=== PATIENT | male | born 1960 | race Caucasian/White ===

== ENCOUNTER 2022-03-27 08:25 | Emergency (ER) | payer OTHER, SELFPAY ==
[2022-03-27 08:26] VITALS: BP 158/92; PULSE 54; RESP 16; TEMP 36.9; O2SAT 95; BMI 33.8
--- NOTE | 2022-03-27 08:44 | RAD_ITS ---
STUDY: X-RAY - LEFT ELBOW REASON FOR EXAM: Male, 62 years old. Elbow pain following a fall. TECHNIQUE: 3 view(s) of the elbow. COMPARISON: None. FINDINGS: Normal visualized humerus, radius and ulna. Normal radiocapitellar and ulnotrochlear articulations. The soft tissue structures are unremarkable. RAD/Elbow min 3 Views IMPRESSION: Normal x-ray examination of the elbow. Electronically Signed: Yousif Castro MD at 9:41 EST ,
--- NOTE | 2022-03-27 08:44 | CT_ITS ---
STUDY: CT LUMBAR SPINE WITHOUT CONTRAST REASON FOR EXAM: Male, 62 years old. Back pain following a fall down the stairs. RADIATION DOSAGE (If Supplied By Facility): CTDIvol = ( 45.85 ) mGy, DLP = ( 1343.39 ) mGycm TECHNIQUE: The patient was scanned in a multi detector CT scanner. High resolution transaxial imaging was performed. Images were obtained from L1 to S1 vertebral level. Sagittal and coronal images were reconstructed. Individualized dose optimization techniques were used for this CT. COMPARISON: None FINDINGS: Normal lumbar lordosis. There is no substantial scoliosis. Normal vertebrae of the lumbar spine. L1-2: Marked degree of disc space narrowing with anterior and posterior spondylosis. Mild degree of central canal stenosis slightly more more prominent on the left side due to posterior spondylosis. Mild degree of diffuse posterior disc bulge and mild narrowing of the intervertebral foramen. L2-3: Mild degree of diffuse posterior disc bulge. No significant stenosis seen. L3-4: Mild degree of diffuse posterior disc bulge. Mild degree of bilateral neural foraminal stenosis. Mild degree of central canal stenosis. L4-5: Moderate degree of bilateral neural foraminal stenosis worse on the right side due to hypertrophy of the facet joints. Central disc bulge slightly more prominent on the right side. L5-S1: Disc space narrowing. Posterior spondylosis on the left side causing narrowing of the left intervertebral foramen. Normal visualized paraspinous soft tissue structures. CT/Spine Lumbar without Contrast IMPRESSION: Multilevel degenerative changes, as described above. Electronically Signed: Yousif Castro MD at 9:39 EST ,
--- NOTE | 2022-03-27 08:44 | RAD_ITS ---
STUDY: X-RAY - PELVIS REASON FOR EXAM: Male, 62 years old. Pain following a fall. TECHNIQUE: One view of the pelvis was obtained. COMPARISON: None. FINDINGS: There is a non-specific bowel gas pattern. There are multiple calcified phleboliths. Surgical clips are seen in the right lower quadrant. There is narrowing with cortical sclerosis and osteophyte formation of the sacroiliac joint consistent with degenerative osteoarthritic changes. Normal visualized bilateral superior and inferior pubic rami. Normal pubic symphysis. Normal ischial tuberosities. Normal visualized right femoral head. Normal right acetabulum. Normal right hip joint. Normal visualized left femoral head. Normal left acetabulum. Normal left hip joint. RAD/Pelvis 1 or 2 Views IMPRESSION: No acute abnormality is seen. Electronically Signed: Yousif Castro MD at 9:42 EST ,
--- NOTE | 2022-03-27 08:45 | CT_ITS ---
STUDY: CT CERVICAL SPINE WITHOUT CONTRAST REASON FOR EXAM: Male, 62 years old. Back pain due to a fall down the stairs. RADIATION DOSAGE (If Supplied By Facility): CTDIvol = ( 24.49 ) mGy, DLP = ( 555.10 ) mGycm TECHNIQUE: High resolution transaxial imaging was performed without contrast material. Sagittal and coronal images were reconstructed. Individualized dose optimization techniques were used for this CT. COMPARISON: None FINDINGS: Normal craniovertebral junction. Normal anterior atlantoaxial articulation. Normal odontoid process. There is straightening of the normal cervical lordosis. Normal vertebral bodies and posterior osseous elements. C2-3: Normal endplates. Normal disc height and morphology. Normal central canal and intervertebral neuroforamina. C3-4: Mild degree of disc space narrowing. Anterior spondylosis. No evidence of disc herniation or spinal stenosis. C4-5: Moderate degree of disc space narrowing. Spondylosis. No significant stenosis. Facet joint osteoarthritis. C5-6: Mild degree of disc space narrowing. No evidence of stenosis. C6-7: Normal endplates. Normal disc height and morphology. Normal central canal and intervertebral neuroforamina. C7-T1: Normal endplates. Normal disc height and morphology. Normal central canal and intervertebral neuroforamina. Normal visualized soft tissue structures. CT/Spine Cervical without Contras IMPRESSION: Multilevel degenerative changes, as described above. Electronically Signed: Yousif Castro MD at 9:36 EST ,
--- NOTE | 2022-03-27 08:45 | CT_ITS ---
STUDY: CT BRAIN WITHOUT CONTRAST REASON FOR EXAM: Male, 62 years old. Pain following a fall down the stairs. RADIATION DOSAGE (If Supplied By Facility): CTDIvol = ( 44.99 ) mGy, DLP = ( 812.98 ) mGycm TECHNIQUE: Transaxial CT imaging of the brain was performed without administration of intravenous contrast material. Individualized dose optimization techniques were used for this CT. COMPARISON: No relevant priors. FINDINGS: Normal soft tissue structures. Normal calvarium. Normal size ventricles and extra-axial spaces for the patient''s age. Normal white matter tracts of the cerebral hemispheres. Normal basal ganglia and thalami. Normal brainstem. Normal cerebellum. There is no intracranial hemorrhage. There are no findings of an acute ischemic infarction. Partial opacification at the base of the left maxillary sinus. CT/Brain/Head without Contrast IMPRESSION: Normal unenhanced CT scan of the brain. Partial opacification at the base of the left maxillary sinus. Electronically Signed: Yousif Castro MD at 9:30 EST ,
--- NOTE | 2022-03-27 08:46 | ED.VIS.FALL ---
HPI HPI - Fall History of Present Illness Chief Complaint: Fall Narrative Narrative: 62-year-old male, status post liver transplantation on antirejection medication along with Tabitha, presents with low back pain after a fall. He states that his showers in the basement and he was getting ready for work, carrying his close. When he is near the bottom around the last 3 steps, there was a cat sitting on the stair that he partially stepped on. As he did not want to put his full weight on the animal, he fell mainly onto his left side. He complains of low back pain. While he hit his head he denies loss of consciousness. No neck pain. He was able to get up and ambulate to the cot for EMS, but is complaining of injury to his low back. While he is able to move his left leg, it causes pain in his low back. He denies any loss of bowel or bladder, or other injury. Of note, he already has ecchymosis on the toes of his right foot from dropping something on it before this injury. He also sustained multiple abrasions to the anterior tibial surfaces of his bilateral lower extremities, and an abrasion to his left elbow. He has mild left elbow pain that is worse with movement. PFSH PFSH Home Medications levothyroxine 100 mcg tablet 100 mcg PO DAILY 10/06/14 [History Last Taken Unknown] folic acid 1 mg tablet 1 mg PO DAILY@0800 11/09/14 [History Last Taken Unknown] furosemide 80 mg tablet 40 mg PO BIDLX 03/22/15 [History Last Taken Unknown] magnesium oxide 400 mg (241.3 mg magnesium) tablet 400 mg PO BID 03/22/15 [History Last Taken Unknown] prednisone 5 mg tablet 5 mg PO DAILY 03/22/15 [History Last Taken Unknown] sulfamethoxazole 400 mg-trimethoprim 80 mg tablet (Bactrim) 2 tab PO QODAY 03/22/15 [History Last Taken Unknown] tacrolimus 1 mg capsule,extended release 24 hr (Astagraf XL) 1 mg PO BID 03/22/15 [History Last Taken Unknown] sirolimus 2 mg tablet 2 mg PO DAILY 05/03/15 [History Last Taken Unknown] lovastatin 20 mg tablet 20 mg PO DAILY 10/29/16 [History Last Taken Unknown] metoprolol tartrate 50 mg tablet 50 mg PO BID 10/29/16 [History Last Taken Unknown] warfarin 7.5 mg tablet (Jantoven) 7.5 mg PO DAILY 10/29/16 [History Last Taken Unknown] oxycodone 5 mg tablet 5 mg PO Q6H PRN pain 3 days #12 tabs 03/27/22 [Rx Last Taken Unknown] Allergy/AdvReac Type Severity Reaction Status Date / Time No Known Allergies Allergy Verified 10/29/16 11:12 Social History Smoking Status: Former smoker ROS ROS ED ROS Narrative Constitutional: No fever, no chills. HEENT: No sore throat. No neck pain. No loss of vision. No rhinorrhea. Cardiovascular: No chest pain. No palpitations. No pedal edema. Respiratory: No cough, no shortness of breath. Abdominal: No abdominal pain. No nausea. No vomiting. Genitourinary: No dysuria. No hematuria. Musculoskeletal: Left elbow pain worse with movement. Low back pain. Neurologic: No headaches. No dizziness. No lightheadedness. Skin: No rash. No change in color. Psychiatric: No depression. No anxiety. EXAM Physical Exam Narrative Exam Narrative: Afebrile. Vital signs noted. GCS 15. ABCs are intact. HEENT: Normocephalic. Atraumatic. PERRL, EOMI. Neck soft and supple. No point tenderness or step off. Cardiovascular: Regular rate and rhythm. No murmurs, rubs, or gallops appreciated. Respiratory: No tachypnea. Lungs clear to auscultation bilaterally. Gastrointestinal: Abdomen soft, nontender, with normoactive bowel sounds. No rebound or guarding. Neurological: Awake. Alert. Oriented x3. Nonfocal, nonlateralizing. Able to raise arms above head without difficulty. Skin: No rash. Normal color. No pallor. Small abrasions to bilateral anterior tibial surfaces, no active bleeding. 1 cm abrasion to left elbow, no active bleeding. Noted ecchymosis to toes on right foot/base of toes without tenderness. Musculoskeletal: No pedal edema. Full range of motion extremities. No pain with logrolling of bilateral femurs. Range of motion of left lower extremity limited secondary to pain, pelvis stable. Palpable dorsalis pedis pulses bilaterally. Const Vital Signs: 03/27/22 08:26 03/27/22 08:29 Temperature 98.5 F Temperature Source Temporal Pulse Rate 54 L Respiratory Rate 16 Respiratory Effort Normal Blood Pressure 158/92 H Blood Pressure Mean 114 Pulse Ox 95 Oxygen Delivery Method Room Air MDM MDM MDM Narrative Medical decision making narrative: Patient was administered morphine for analgesia. Although he does not complain of headache as he is a head injury on anticoagulation CT of the brain will be obtained along with CT of the cervical and lumbar spine. I will obtain x-rays of his left elbow and pelvis. The multiple imaging studies were obtained. My interpretation of his left elbow x-ray shows no evidence of acute fracture. My interpretation of his pelvis x-ray shows no fracture or dislocation of his hip. CT of the brain shows no acute hemorrhage or skull fracture. CT of the cervical spine shows degenerative changes. CT of the lumbar spine also shows degenerative changes but no evidence of acute fracture. CT of the abdomen and thorax was obtained because on imaging it appears that he had a rib fracture. He does have a posterior rib fracture/posterior lateral of the 10th rib on the left. Patient was given morphine 4 mg x 2. He was also given an incentive spirometer to use 10 times every hour while awake to prevent pneumonia. As he has history of liver transplant I will write him a prescription for oxycodone to take over the next 3 days. He was given an incentive spirometer. At this point in time, I do not feel that he requires transfer to a trauma center, or that he requires admission. I feel he can be discharged safely home with follow-up. Return instructions to the emergency department were reviewed. Disposition is discharged home in stable condition. Radiography Diagnostic Testing: Clinical Impression(s) from Imaging Studies Elbow X-Ray 03/27/22 08:44 IMPRESSION: Normal x-ray examination of the elbow. Electronically Signed: Yousif Castro MD at 9:41 EST , Lumbar Spine CT 03/27/22 08:44 IMPRESSION: Multilevel degenerative changes, as described above. Electronically Signed: Yousif Castro MD at 9:39 EST , ADDENDUM: 03/27/22 1013 IMPRESSION: undefined Pelvis X-Ray 03/27/22 08:44 IMPRESSION: No acute abnormality is seen. Electronically Signed: Yousif Castro MD at 9:42 EST Reading Location ID and State: [facility] / [place] , Service support , Brain CT 03/27/22 08:45 IMPRESSION: Normal unenhanced CT scan of the brain. Partial opacification at the base of the left maxillary sinus. Electronically Signed: Yousif Castro MD at 9:30 EST Reading Location ID and State: [facility] / [place] , Service support , Cervical Spine CT 03/27/22 08:45 IMPRESSION: Multilevel degenerative changes, as described above. Electronically Signed: Yousif Castro MD at 9:36 EST Reading Location ID and State: [facility] / [place] , Service support , Thoracic Spine CT 03/27/22 09:08 IMPRESSION: Multilevel disc space narrowing and spondylosis. No compression fracture is seen. Electronically Signed: Yousif Castro MD at 9:41 EST Reading Location ID and State: [facility] / [place] , Service support , Abdomen CT 03/27/22 09:25 IMPRESSION: Nondisplaced fracture of the left 10th rib posterolaterally. Electronically Signed: Yousif Castro MD at 9:59 EST , Chest CT 03/27/22 09:25 IMPRESSION: Nondisplaced fracture of the left 10th rib posterolaterally. Bibasilar atelectasis. Electronically Signed: Yousif Castro MD at 10:04 EST , Discharge Plan Triage Chief Complaint: Fall ED Provider: Christiano Neal Dx/Rx/DC Orders Clinical Impression: Fall down stairs, Closed rib fracture, Contusion of elbow, left, Multiple abrasions Instructions: ED Contusion, Elbow, ED Mechanical Fall, ED Rib Fracture Prescriptions: New oxycodone 5 mg tablet 5 mg PO Q6H PRN (Reason: pain) 3 Days Qty: 12 0RF No Action levothyroxine 100 MCG tablet 100 mcg PO DAILY folic acid 1 MG tablet 1 mg PO DAILY@0800 furosemide 80 MG tablet 40 mg PO BIDLX sulfamethoxazole-trimethoprim [Bactrim] 1 EACH tablet 2 tab PO QODAY Label Comments: take only on friday and friday and friday at 9am magnesium oxide 400 MG tablet 400 mg PO BID prednisone 5 MG tablet 5 mg PO DAILY tacrolimus [Astagraf XL] 1 MG capsule,extended release 24hr 1 mg PO BID sirolimus 2 MG tablet 2 mg PO DAILY warfarin [Jantoven] 7.5 MG tablet 7.5 mg PO DAILY Label Comments: 6.5 on weekdays and 7.5 on weekends metoprolol tartrate 50 MG tablet 50 mg PO BID lovastatin 20 MG tablet 20 mg PO DAILY Primary Care Provider: Ann Horowitz NP Referrals: Ann Horowitz NP, [facility] [Primary Care Provider] - 3-5 Days Disposition Disposition: Home, Self Care Discharge Date/Time: 03/27/22 11:21
[2022-03-27] MEDS: Morphine 4 MG/ML Syringe IV ×2 (08:54→10:48)
--- NOTE | 2022-03-27 09:08 | CT_ITS ---
STUDY: CT THORACIC SPINE WITHOUT CONTRAST REASON FOR EXAM: Male, 62 years old. Pain following fall down stairs. RADIATION DOSAGE (If Supplied By Facility): CTDIvol = ( 43.66 ) mGy, DLP = ( 1683.02 ) mGycm TECHNIQUE: The patient was scanned in a multi detector CT scanner. High resolution imaging was performed. Images were obtained from T1 to T12 vertebral level. Sagittal and coronal images were reconstructed. Individualized dose optimization techniques were used for this CT. COMPARISON: None. FINDINGS: Normal visualized cervical spine. Normal kyphosis of the thoracic spine. There is no substantial scoliosis. There is multilevel endplate spondylosis of the thoracic spine. There is multilevel degenerative disc disease with loss of the disc space heights. Minimal degree of atelectasis at the lung bases. CT/Spine Thoracic without Contras IMPRESSION: Multilevel disc space narrowing and spondylosis. No compression fracture is seen. Electronically Signed: Yousif Castro MD at 9:41 EST ,
--- NOTE | 2022-03-27 09:25 | CT_ITS ---
STUDY: CT ABDOMEN WITHOUT CONTRAST REASON FOR EXAM: Male, 62 years old. Low back pain following a fall. RADIATION DOSAGE (If Supplied By Facility): CTDIvol = ( 45.85 ) mGy, DLP = ( 4394 ) mGycm TECHNIQUE: Transaxial images were obtained without intravenous contrast, and without oral contrast. Sagittal and coronal images were reconstructed. Individualized dose optimization techniques were used for this CT. COMPARISON: None. FINDINGS: Normal right kidney. Normal left kidney. Normal visualized stomach. Normal small intestine. Normal colon. There are surgical clips in the region of the appendix consistent with a prior appendectomy. Normal abdominal aorta. Normal inferior vena cava. Normal retroperitoneum. There is a small umbilical hernia containing fat. There are mild degenerative changes of the visualized lumbar spine. Nondisplaced fracture of the left 10th rib posterolaterally. CT/Abdomen without IV Contrast IMPRESSION: Nondisplaced fracture of the left 10th rib posterolaterally. Electronically Signed: Yousif Castro MD at 9:59 EST ,
--- NOTE | 2022-03-27 09:25 | CT_ITS ---
STUDY: CT CHEST WITHOUT CONTRAST REASON FOR EXAM: Male, 62 years old. Back pain following a fall. RADIATION DOSAGE (If Supplied By Facility): CTDIvol = ( 23.66 ) mGy, DLP = ( 1683.0 to ) mGycm TECHNIQUE: Transaxial imaging was performed without the administration of intravenous contrast material. Individualized dose optimization techniques were used for this CT. COMPARISON: No relevant priors. FINDINGS: CHEST Mild degree of bibasilar dependent atelectasis. There is no demonstrated pleural abnormality. There are calcifications of the coronary arteries. Normal mediastinum. Normal hilar regions. Normal unenhanced pulmonary arteries. There is mild degree of atherosclerotic calcification of the aortic arch. Thoracic aorta. There are degenerative changes of the thoracic spine. Nondisplaced fracture of the left 10th rib posterolaterally. There is no demonstrated abnormality of the visualized upper abdomen. CT/Thorax/Ribs/Sternum without IMPRESSION: Nondisplaced fracture of the left 10th rib posterolaterally. Bibasilar atelectasis. Electronically Signed: Yousif Castro MD at 10:04 [facility] ,
== END 2022-03-27 11:21 | disposition home or self-care (01) ==
PROVIDERS: Emergency Provider Emergency Medicine; PCP Nurse Practitioner Primary Care; Visit Provider Emergency Medicine
DX: S22.32XA Fracture of one rib, left side, initial encounter for closed fracture (principal); Z94.4 Liver transplant status; S50.02XA Contusion of left elbow, initial encounter; W10.9XXA Fall (on) (from) unspecified stairs and steps, initial encounter; Z87.891 Personal history of nicotine dependence
CPT/HCPCS: 70450; 71250; 72125; 72128; 72131; 72170; 73080; 74150; 96374; 96376; 99284; A4216